=== PATIENT | male | born 1955 | race Caucasian/White ===

== ENCOUNTER 2018-10-17 11:12 | Emergency (ER) | payer OTHER ==
--- NOTE | 2018-10-17 11:16 | PDOC ---
History of Present Illness - General Chief Complaint: Respiratory Stated Complaint: cough,fever and bodyaches Time Seen by Provider: 10/17/18 11:16 History Source: Patient Exam Limitations: No Limitations - History of Present Illness Initial Comments: 10/17/18 11:57 HPI 63 YOM with h/o HTN and HLD presenting with nonproductive cough x 3 days, headaches, myalgias, diffuse body aches and sore throat, fever (yesterday Tmax 104). Chest discomfort with coughing episodes, SOB at nighttime. Took motrin/tylenol yesterday last dose together last night, nyquil for the cough with relief. Denies nasal congestion, palpitation, dizziness, palpitations, N, V, D, abdominal pain, bladder and bowel problems, leg swelling, no travel. No new changes in medications. No suspicious food intake, +sick contact ( simultaneously ill with URI sx) Allergies: NKA Past Medical History: HTN, HLD Social history: Lives with family. No smoking. Occasional alcohol. No illicit drugs. Surgical history: noncontributory PMD: Dr Manzanares Review of systems Constitutional: + fevers or chills. HEENT: no headache or dizziness. No congestion. No visual/hearing disturbances. No ear pain. +sore throat. CVS: no palp or syncope. +chest discomfort with coughing Resp: +cough and SOB Gastrointestinal: no abdominal pain, nausea or vomiting. Genitourinary: no urinary sx, hematuria. MUSCULOSKELETAL: +diffuse myalgias, back pain. No neck stiffness SKIN: no redness or skin changes, no discharge, no rash. No wounds. Hematologic: no easy bruising/bleeding. NEUROLOGIC: +headache. No dizziness, LOC or altered mental status. No weakness, numbness or tingling. Psych: no anxiety or depression Allergic/Immunologic: no allergies All other systems reviewed and negative, or as documented in HPI. Physical exam: General: Well appearing, awake and alert, NAD. HEENT: NCAT, PERRL, EOMI, clear conjunctiva, anicteric, moist mucus membranes, clear oropharynx, no oral lesions.. Neck: neck supple, FROM Resp: CTAB, normal and even respirations, no respiratory distress CVS: RRR, no murmurs, 2+ peripheral pulses throughout, no peripheral edema Abdomen: soft, NTND, no peritoneal signs. Back: nontender, normal inspection and ROM MSK: no edema, DUKES x4, ROM intact. No clubbing or cyanosis. normal bulk and tone. Neuro: alert, no focal neuro deficits. Skin: warm and well perfused, cap refill <2 sec, normal color Past History - Past Medical History Allergies/Adverse Reactions: Allergies Allergy/AdvReac Type Severity Reaction Status Date / Time No Known Allergies Allergy Verified 10/17/18 11:13 Home Medications: Ambulatory Orders Amlodipine Besylate 10 mg PO DAILY 05/30/16 Albuterol Sulfate Inhaler - [Ventolin HFA Inhaler -] 2 inh PO Q4H PRN #1 inh 03/29 Atorvastatin Ca [Lipitor] 0 mg PO HS 10/17/18 Carvedilol 3.125 mg PO DAILY 10/17/18 Cholecalciferol (Vitamin D3) [Vitamin D3] 0 unit PO DAILY 10/17/18 Hydrochlorothiazide [Hctz -] 12.5 mg PO DAILY 10/17/18 COPD: No HTN: Yes Hypercholesterolemia: Yes - Suicide/Smoking/Psychosocial Hx Smoking History: Never smoked Hx Alcohol Use: Yes (OCCASIONAL) Drug/Substance Use Hx: No Substance Use Type: None Heart Score/ECG Review #1 ECG reviewed & interpreted by me at: 11:55 General ECG Interpretation: Sinus Rhythm, Normal Rate, Normal Intervals 10/17/18 11:58 EKG normal sinus rhythm at 72 bpm, no interval abnormalities, narrow QRS, ST and T wave segments and morphology normal. Nonspecific T wave abnormalities in III only, no contiguous lead changes. Medical Decision Making - Medical Decision Making 10/17/18 11:59 hpi as documented VS reviewed_wnll, no hypoxia, normal respirations DDx SOB: arrhythmia, PTX, pulmonary edema, pleurisy, pneumonia, pericarditis, influenza, viral syndrome. effusion. clinically doubt cardiac or ACS, EKG nonischemic nontoxic appearing, given duonebs x3, tylenol for analgesia - feels much improved flu swab neg strep test neg, f/u culture CXR neg for infection, normal silhouette supportive care, albuterol prn, motrin/tylenol prn fever/pain, hydration dispo: Pt informed of my clinical impression, treatment recommendations and disposition plan. All questions answered to patient's satisfaction and expressed understanding and comfort with this. Reasons for returning to the ED sooner discussed including new or persistent/worsening symptoms with the patient otherwise, follow up with primary care physician. At the time of discharge, the patient is alert, clinically improved, tolerating po and verbalizes understanding of instructions, satisfied with the care received and felt comfortable with the plan. Patient does not suffer from an acute life- threatening medical condition at this time he is safe for outpatient follow-up. 10/17/18 12:48 *DC/Admit/Observation/Transfer Diagnosis at time of Disposition: Upper respiratory infection - Discharge Dispostion Disposition: HOME Condition at time of disposition: Stable Decision to Admit order: No - Prescriptions Prescriptions: Albuterol Sulfate Inhaler - [Ventolin HFA Inhaler -] 2 inh PO Q4H PRN #1 inh PRN Reason: Cough - Referrals - Patient Instructions Printed Discharge Instructions: DI for Acute Bronchitis, DI for Viral Upper Respiratory Infection -- Adult Additional Instructions: your chest xray was clear, no pneumonia motrin and /or tylenol for pain control strep test negative, follow up on your throat cultures flu test_negative salt water gargles and warm lemon tea is appropriate as well for soothing qualities for sore throat/cough. minimize spread of infection given contagious nature, and cover your mouth and wash your hands adequately with soap and water. Stay well hydrated and rest. Please take IBUPROFEN (aka MOTRIN, ADVIL, ALEVE) 400 mg and/or ACETAMINOPHEN ( aka Tylenol) 650-975 mg every 6 hours, as needed, for pain or fever. Please do not take these medications if you have a bleeding disorder, stomach or GI ulcer problems or liver disease. May use the albuterol inhaler every 4-6 hours as needed for cough and breathing to clear up your airways. Return precautions include respiratory distress, difficulty breathing, chest pain, lethargy, confusion, dehydration, high fevers or pain. follow up with your primary care doctor in [facility] - Post Discharge Activity Forms/Work/School Notes: Back to Work
[2018-10-17 11:18] VITALS: BP 132/87; PULSE 75; TEMP 99.3; BMI 28.6
[2018-10-17] MEDS ORDERED: ACETAMINOPHEN 325 MG TABLET (FP) PO ONE (11:24)
[2018-10-17] MEDS ORDERED: ACETAMINOPHEN 325 MG TABLET (FP) ONE (11:29)
[2018-10-17] MEDS ORDERED: ALBUTEROL SO4 2.5/IPRATROPIUM 0.5 INH SOL 3 ML VIAL.NEB. NEB ONE (11:29)
[2018-10-17] MEDS: ALBUTEROL SO4 2.5/IPRATROPIUM 0.5 INH SOL 3 ML VIAL.NEB. NEB SCH ×3 (11:39→12:13)
--- NOTE | 2018-10-17 16:35 | EKG ---
Test Reason : Blood Pressure : / mmHG Vent. Rate : 072 BPM Atrial Rate : 072 BPM P-R Int : 154 ms QRS Dur : 086 ms QT Int : 350 ms P-R-T Axes : 060 016 030 degrees QTc Int : 383 ms NORMAL SINUS RHYTHM NORMAL ECG NO PREVIOUS ECGS AVAILABLE Confirmed by MD JENNIFER, IGOR ([id number]) on 10/17/2018 4:34:32 PM Referred By: HANNAH BOWENS Confirmed By:IGOR RODRIGUEZ MD
== END 2018-10-17 13:06 | disposition home or self-care (01) ==
LOC: FER 11:12
PROC: 3E0F7GC Introduction of Other Therapeutic Substance into Respiratory Tract, Via Natural or Artificial Opening (ICD-10-PCS; principal; 2018-10-17)
DX: J06.9 Acute upper respiratory infection, unspecified (principal); I10 Essential (primary) hypertension; E78.5 Hyperlipidemia, unspecified
CPT/HCPCS: 71046-TC-FY; 87070; 87804; 87880; 93005; 94640; 99282-25

== ENCOUNTER → 2022-06-11 | Emergency (ER) | payer OTHER ==
[~2022-06-11] MED LIST: ACETAMINOPHEN 1000 MG/100 ML BAG IVPB ONE; ACETAMINOPHEN INJECTION 100 ML IVPB ONE; CLINDAMYCIN 600MG PREMIX IVPB 600 MG/50 ML BAG IVPB ONE; IBUPROFEN 600 MG TABLET (FP) PO ONE; LIDOCAINE 5% TOPICAL PATCH ONE; LIDOCAINE 5% TOPICAL PATCH TP ONE; LIDOCAINE PATCH REMOVAL MC SCH
[2022-06-11 12:07] VITALS: RESP 18; BMI 28.8
[2022-06-11 15:32] LABS: ALBUMIN 3.8 g/dl (3.4-5.0); CALCIUM 8.7 mg/dl (8.5-10); CREATININE 0.7 mg/dl (0.55-1.3); TOT PROT 7.1 g/dl (6.4-8.2)
[2022-06-11 15:35] LABS: HEMATOCRIT 44.8 % (35.4-49); HEMOGLOBIN 14.8 G/dL (11.7-16.9); MCH 29.1 pg (25.7-33.7); MCHC 32.9 g/dl (32.0-35.9); MEAN CELL VOLUME 88.4 fl (80-96); MEAN PLT VOLUME 9.7 fl (7.5-11.1); RBC 5.07 10^6/uL (4.00-5.60)
[2022-06-11 16:23] LABS: PLATELET ESTIMATE ADEQUATE
[2022-06-11 20:49] VITALS: BP 122/84; PULSE 72; TEMP 98.7
== END | disposition short-term general hospital (02) ==
LOC: FER 11:44
PROC: 3E0333Z Introduction of Anti-inflammatory into Peripheral Vein, Percutaneous Approach (ICD-10-PCS; principal; 2022-06-11)
PROC: 3E033GC Introduction of Other Therapeutic Substance into Peripheral Vein, Percutaneous Approach (ICD-10-PCS; 2022-06-11)
DX: H92.02 Otalgia, left ear (principal); M54.50 Low back pain, unspecified
CPT/HCPCS: 0241U-QW; 36415; 70486-TC; 73502-TC-LT-FY; 80053; 85025; 99285-25

== ENCOUNTER 2023-10-20 11:00 | Emergency (ER) | payer OTHER ==
[2023-10-20 11:18] VITALS: BP 157/108; PULSE 72; RESP 19; TEMP 97.9; BMI 29.7
[2023-10-20] MEDS ORDERED: IBUPROFEN 400 MG TABLET (FP) PO ONE (11:40)
[2023-10-20] MEDS ORDERED: LIDOCAINE 5% TOPICAL PATCH ONE (11:40)
[2023-10-20] MEDS: IBUPROFEN 400 MG TABLET (FP) PO ONE (11:40)
[2023-10-20] MEDS: LIDOCAINE 5% TOPICAL PATCH TP ONE (11:47)
[2023-10-20] MEDS ORDERED: LIDOCAINE PATCH REMOVAL MC ONE (22:00)
== END 2023-10-20 12:49 | disposition home or self-care (01) ==
LOC: FER 11:00
DX: M54.50 Low back pain, unspecified (principal); M79.89 Other specified soft tissue disorders; X50.3XXA Overexertion from repetitive movements, initial encounter; Y93.01 Activity, walking, marching and hiking; Y92.009 Unspecified place in unspecified non-institutional (private) residence as the place of occurrence of the external cause
CPT/HCPCS: 93971-TC; 99284-25